=== PATIENT | male | born 1960 | race Caucasian/White ===

== ENCOUNTER 2025-04-11 07:08 | Day surgery (SDC) | payer MEDICARE, OTHER ==
[2025-04-11] VITALS (9 sets, daily range): BP systolic 96–142; BP diastolic 62–78; PULSE 60–76; RESP 12–16; TEMP 97.7; O2SAT 93–99
[~2025-04-11] VITALS: Ht 162.6 cm; Wt 66.0 kg
[~2025-04-11 07:08] MED LIST: AMLO2.5T2 PO; LISI40TA20 PO; ringers solution, lacted 1,000 ML IV SCH; simethicone 40mg/0.6ml oral drops 15ml PO ONE
[2025-04-11] MEDS: fentaNYL/PF 50MCG/1 ML 2ML syringe IV ONE ×2 (09:07→09:58)
[2025-04-11] MEDS ORDERED: fentaNYL/PF 50MCG/1 ML 2ML syringe ONE (09:39)
[2025-04-11] MEDS ORDERED: MIDAZolam 1 MG/ML 5ML VIAL ONE (09:40)
[2025-04-11] MEDS: MIDAZolam 1 MG/ML 5ML VIAL IV ONE ×2 (09:54)
== END 2025-04-11 11:29 | disposition home or self-care (01) ==
LOC: GI LAB 07:08
PROVIDERS: ATTEND Internal Medicine Gastroenterology
DX: Z12.11 Encounter for screening for malignant neoplasm of colon (principal); K57.30 Diverticulosis of large intestine without perforation or abscess without bleeding; I10 Essential (primary) hypertension; I25.10 Atherosclerotic heart disease of native coronary artery without angina pectoris; Z79.899 Other long term (current) drug therapy; Z98.890 Other specified postprocedural states
CPT/HCPCS: A4620; G0121; G0500; J2250; J3010; J7120; Z7512; 45378; 99152; 99153; G0105